=== PATIENT | male | born 1990 ===

== ENCOUNTER 2020-03-24 16:12 | Inpatient (IN) | payer MEDICAID, SELFPAY ==
[2020-03-24] VITALS (7 sets, daily range): BP systolic 112–127; BP diastolic 54–86; PULSE 52–82; RESP 16–20; TEMP 36.7–37.1; O2SAT 95–99; BMI 20.2
--- NOTE | ~2020-03-24 | XR_ITS ---
EXAMINATION: XR chest 1V portable INDICATION: Shortness of breath and right-sided chest pain TECHNIQUE: Portable AP chest at 1638 hours COMPARISON: None available FINDINGS: There is a large right pneumothorax. The trachea, mediastinum, and heart demonstrate slight leftward displacement. The left lung is clear. There is no pleural effusion. The visualized osseous structures are normal. IMPRESSION: 1. Right tension pneumothorax. These findings were discussed with CHRISTOPHER Pro in the Emergency Department at 1653 hours on 03/24/2020. ED is currently preparing for chest tube insertion. Reviewed, dictated and finalized at location A. IMPRESSION: 1. Right tension pneumothorax. These findings were discussed with CHRISTOPHER Pro in the Emergency Department at 1653 hours on 03/24/2020. ED is currently p reparing for chest tube insertion.
--- NOTE | ~2020-03-24 | XR_ITS ---
EXAMINATION: XR chest 1V portable DATE: 03/27/2020 14:11 INDICATION: Right pneumothorax. TECHNIQUE: A single frontal view of the chest was obtained. COMPARISON: Chest 2 views at 10:17 AM FINDINGS: There is mild atelectasis in right lower lung zone. There is a tiny right apical pneumothor ax. No pleural effusion. The heart size is normal. IMPRESSION: 1. Tiny right apical pneumothorax after chest tube removal. Reviewed, dictated and finalized at location A.
--- NOTE | ~2020-03-24 | XR_ITS ---
EXAMINATION: XR chest 1V portable INDICATION: Right pneumothorax TECHNIQUE: Portable AP chest at 0810 hours COMPARISON: 03/25/2020 FINDINGS: A right chest tube is in expected position. The right lung is reexpanded. A minute right ap ical pneumothorax is seen. There is resolving atelectasis of the right lung. The left lung is clear. The cardiomediastinal silhouette is normal. There is no pleural effusion. IMPRESSION: 1. Reexpansion of the right lung with minute right apical pneumothorax. Reviewed, dictated and finalized at location A.
--- NOTE | ~2020-03-24 | XR_ITS ---
EXAMINATION: XR chest-chest tube insert/pos INDICATION: Chest tube insertion TECHNIQUE: Portable AP chest at 1745 hours COMPARISON: 1638 hours FINDINGS: A right-sided chest tube has been inserted. There is a tiny persistent right apical pneumot horax. The right lung is largely reexpanded. There are patchy opacities of the right lung which likel y reflect atelectasis. The mediastinum has returned to normal position. The left lung is clear. IMPRESSION: 1. Near complete reexpansion of the right lung post chest tube insertion with tiny residual right api robbin pneumothorax. 2. Patchy opacities of the right lung, likely atelectasis. Reviewed, dictated and finalized at location A. IMPRESSION: 1. Near complete reexpansion of the right lung post chest tube insertion with t iny residual right apical pneumothorax. 2. Patchy opacities of the right lung, likely atelectasis.
--- NOTE | ~2020-03-24 | XR_ITS ---
EXAMINATION: XR chest 1V portable INDICATION: Right-sided pneumothorax TECHNIQUE: Portable AP chest at 0808 hours COMPARISON: 03/24/2020 FINDINGS: A right chest tube projects in expected position. There is a moderate-sized right pneumotho rax, increased in size since the chest tube placement radiograph from yesterday. Patchy opacities in the right lung likely reflect atelectasis. The left lung is clear. The cardiomediastinal silhouette i s normal and without leftward shift. Gas of the left chest wall is consistent with chest tube inserti on. IMPRESSION: 1. Moderate size right pneumothorax with increase in size. Reviewed, dictated and finalized at location A.
--- NOTE | ~2020-03-24 | XR_ITS ---
EXAMINATION: XR chest 1V portable EXAM DATE: 03/27/2020 17:03 INDICATION: Pneumothorax follow-up. TECHNIQUE: Frontal and lateral projections of the chest obtained and reviewed. Comparison is made to prior examination from 03/27/2020, earlier same day. FINDINGS: The lungs are clear. There are no pleural effusions. The cardiomediastinal silhouette is within normal limits. There is no pneumothorax suspected. The bones and soft tissues are unremarkab le. IMPRESSION: No evidence of recurrent right-sided pneumothorax. Reviewed, dictated and finalized at location A.
--- NOTE | ~2020-03-24 | XR_ITS ---
EXAMINATION: XR chest 2V DATE: 03/27/2020 10:23 INDICATION: Right pneumothorax. TECHNIQUE: Frontal and lateral views of the chest were obtained. COMPARISON: Chest single view 03/26/2020 FINDINGS: There is mild atelectasis in right lower lung zone. There is a tiny right apical pneumothor ax. No pleural effusion. The heart size is normal. There is a right-sided chest tube in expected posi tion. IMPRESSION: 1. Stable tiny right apical pneumothorax with right-sided chest tube in expected position. Reviewed, dictated and finalized at location A. IMPRESSION: 1. Stable tiny right apical pneumothorax with right-sided chest tube in expecte d position.
--- NOTE | 2020-03-24 16:14 | ECG_ITS ---
Measurements Intervals [place] Rate: 72 P: 101 ID: [id number] QRS: 99 QRSD: 118 T: 85 QT: 363 QTc: 399 Interpretive Statements SINUS RHYTHM INCOMPLETE RIGHT BUNDLE BRANCH BLOCK ARM LEADS REVERSED BASELINE ARTIFACT- I, III, AVR, AVL, AVF, V2-V3, V6 ABNORMAL ECG Electronically Signed On 03-25-2020 8:43:55 CDT by Addy Richmond D.O.
[2020-03-24 16:30] LABS: Basophils Percent Auto 0.3 % (0.2-1.2); Eosinophils Absolute Auto 0.1 K/mm3 (0-0.3); Eosinophils Percent Auto 1.1 % (0-4.4); Hematocrit 46.2 % (42.0-52.0); Hemoglobin 15.5 g/dL (14.0-18.0); Immature Granulocyte Absolute 0.01 K/mm3 (0.00-0.031); Immature Granulocyte Percent A 0.1 % (0-0.5); Lymphocytes Absolute Auto 2.76 K/mm3 (0.9-3.2); Lymphocytes Percent Auto 37.8 % (18.3-44.2); Mean Corpuscular HGB Conc 33.5 g/dl (32-36); Mean Corpuscular Hemoglobin 33.6 pg (26-34); Mean Corpuscular Volume 100.2 fl (80-100); Mean Platelet Volume 10.5 fl (7.4-10.4); Monocytes Absolute Auto 0.7 K/mm3 (0.1-0.6); Monocytes Percent Auto 8.9 % (2.6-8.5); Neutrophils Absolute Auto 3.8 K/mm3 (1.3-6.7); Neutrophils Percent Auto 51.8 % (45.5-73.1); Platelet Count Result 193 k/mm3 (150-375); Red Blood Count 4.61 M/mm3 (4.6-6.20); Red Cell Distribution Width 12.7 % (11.5-14.5); White Blood Count 7.3 K/mm3 (4.5-10.0)
--- NOTE | 2020-03-24 16:30 | ED.CHESTPAIN ---
HPI - Chest Pain General Chief Complaint: Chest Pain <Rm Moore PA-C - Last Filed: 03/24/20 18:08> Stated Complaint: Right side CP <ANGEL Saldaña Last Filed: 03/24/20 18:08> Time Seen by Provider: 03/24/20 16:14 <ANGEL Saldaña Last Filed: 03/24/20 18:08> Source: EMS <ANGEL Saldaña Last Filed: 03/24/20 18:08> Mode of arrival: ambulatory <ANGEL Saldaña Last Filed: 03/24/20 18:08> Limitations: no limitations <Rm Moore PA-C - Last Filed: 03/24/20 18:08> History of Present Illness HPI narrative: Patient is a 29-year-old male who presents to emergency department for evaluation of right-sided chest pain dyspnea that began acutely just prior to arrival patient was doing push-ups when he began to have the discomfort and pain called 911 and presents to emergency department <ANGEL Saldaña Last Filed: 03/24/20 18:08> Related Data Home Medications: Home Medications Medication Instructions Recorded Confirmed No Home Medications 03/24/20 03/24/20 <Rm Moore PA-C - Last Filed: 03/24/20 18:08> Allergies/Adverse Reactions: Allergies Allergy/AdvReac Type Severity Reaction Status Date / Time No Known Allergies Allergy Verified 03/24/20 16:30 <ANGEL Saldaña Last Filed: 03/24/20 18:08> Review of Systems Review of Systems: All systems reviewed & are unremarkable except as noted in HPI and below <Rm Moore PA-C - Last Filed: 03/24/20 18:08> PMFSH Past Medical History Medical History: Medical History No pertinent past medical history <ANGEL Saldaña Last Filed: 03/24/20 18:08> Social History Social History: Social History Smoking status: Never smoker <ANGEL Saldaña Last Filed: 03/24/20 18:08> Exam Narrative: Exam Narrative: GENERAL: Well-appearing, well-nourished, and in no acute distress. HEAD: Normocephalic, atraumatic. EYES: PERRLA and EOMI. ENT: Nares clear, no rhinorrhea or epistaxis. Mucous membranes moist. Oropharynx without tonsillar hypertrophy exudate or other lesions. Bilateral TMs pearly mendoza nonbulging NECK: Supple. No adenopathy or masses. No carotid bruits or JVD CHEST: Diminished breath sounds on the right clear to auscultation on the left. No respiratory distress. No wheezes rales or rhonchi HEART: Regular rate and rhythm. No murmur heard. Normal peripheral pulses. ABDOMEN: Soft, nontender, nondistended EXTREMITIES: Normal range of motion. No edema. SKIN: Warm, dry, no rash. NEURO: No focal deficits. Alert and oriented x3. PSYCH: Normal mood and affect. <Rm Moore PA-C - Last Filed: 03/24/20 18:08> Course Course Emergency Course: d/w hospitalist, dr hernandes, dr li <Jorge Hays MD - Last Filed: 03/24/20 19:23> Vital Signs Vital signs: Vital Signs Temperature 37.1 C 03/24/20 16:10 Respiratory Rate 03/24/20 16:10 Blood Pressure 116/78 03/24/20 16:10 Pulse Oximetry 95 03/24/20 16:10 Temperature 37.1 C 03/24/20 16:10 Pulse Rate 76 03/24/20 18:57 Respiratory Rate 18 03/24/20 18:57 Blood Pressure 127/86 03/24/20 18:57 Pulse Oximetry 99 03/24/20 18:57 <Rm Moore PA-C - Last Filed: 03/24/20 18:08> Vital Signs Temperature 37.1 C 03/24/20 16:10 Respiratory Rate 20 03/24/20 16:10 Blood Pressure 116/78 03/24/20 16:10 Pulse Oximetry 95 03/24/20 16:10 Temperature 37.1 C 03/24/20 16:10 Pulse Rate 76 03/24/20 18:57 Respiratory Rate 18 03/24/20 18:57 Blood Pressure 127/86 03/24/20 18:57 Pulse Oximetry 99 03/24/20 18:57 <Jorge Hays MD - Last Filed: 03/24/20 19:23> Procedures Chest Tube Chest Tube 1: Chest Tube Date: 03/24/20 <Jorge Hays MD - Last Filed: 03/24/20 19:23
[2020-03-24 16:42] LABS: Alanine Aminotransferase 16 U/L (4-50); Albumin Level 4.6 g/dL (3.5-5.1); Alkaline Phosphatase 69 U/L (38-126); Aspartate Amino Transferase 18 U/L (17-59); Bilirubin,Total 0.9 mg/dL (0.2-1.3); Blood Urea Nitrogen 15 mg/dL (9-20); Calcium 9.2 mg/dL (8.4-10.2); Carbon Dioxide 29 mmol/L (22-30); Chloride 102 mmol/L (98-107); Estimated CRCL calculation 93 ml/min; Estimated Glomerular Filt Rate > 60; Glucose 104 mg/dL (75-110); Potassium 3.9 mmol/L (3.4-5.0); Sodium 138 mmol/L (137-145)
[2020-03-24 16:43] LABS: Partial Thromboplastin Time 27.8 SECONDS (22.3-36.8)
[2020-03-24] MEDS: SODIUM CHLORIDE 0.9% IV 1,000 ML 100 ML (17:25)
[2020-03-24] MEDS: MORPHINE SULFATE 4 MG/ML INJ IV PUSH ×2 (17:49→20:14)
[2020-03-24] MEDS: LACTATED RINGERS 1,000 ML 125 ML IV CONT (20:13)
[2020-03-24] MEDS: FAMOTIDINE 20 MG/2 ML VIAL IV PUSH (20:15)
--- NOTE | 2020-03-24 20:22 | ADMGEN ---
This patient, Shivam Albright, was admitted to [facility] Surg Room 331-02. Patient/family oriented to hospital policies and general routines including ID bracelet, bed and alarms, visiting hours, pain management, procedures, bathroom and other care routines, personal items, smoking policy, room service/diet, and visiting hours. Valuables list has been completed. Information on how to activate the Rapid Response Team has been discussed. Patient/Family are encouraged to report perceived risks to care and to ask questions if they do not understand what they are told or what they should do.
--- NOTE | 2020-03-24 20:59 | PM.IMHP ---
H&P: HPI History of Present Illness Chief complaint: Right side CP Narrative: Shivam Albright is a 29 year old male who states that he does pushups about every other day. He said when he 1st woke up he did about 5 push up and started to have some severe pain on the right side. He has not had any fever or chills or been around anybody that has covid 19. No BS in the house is sick. He has not been sick at all. No fever no chills no cough. Patient was concerned because he had this right-sided chest pain and shortness of breath after doing pushups. The patient stated that he had a staph infection possibly MRSA under his armpit in the past but nothing like this. The patient smokes a joint of marijuana every single day. He stated that his brother had bilateral chest tubes when he was an infant and his dad and had chest tube in the past as well. On the x-ray it shows a right tension pneumothorax as read by radiologist. A chest tube was placed in the emergency room and the repeat chest x-ray was read as near complete re-expansion of the right lung post chest tube insertion with tiny residual right apical pneumothorax. Patchy opacities right lung likely atelectasis. Patient was swabbed for covid 19. Date of service 03/24/2020 Review of Systems Review of Systems: Narrative: No fever chills. You short of breath after he did sit ups. All systems reviewed & are unremarkable except as noted in HPI and below Constitutional: Constitutional: Reports as per HPI and Reports no additional constitutional complaints Eyes: Eyes: Reports as per HPI and Reports no additional eye complaints ENT: Reports system reviewed and no additional complaints, except as documented and Reports Normal hearing present Cardiovascular: Cardiovascular: Reports no additional cardiovascular complaints Respiratory: Respiratory: Reports no additional respiratory complaints and Reports no additional respiratory complaints Gastrointestinal: Gastrointestinal: Reports as per HPI and Reports no additional gastrointestinal complaints Musculoskeletal: Musculoskeletal: Reports no additional musculoskeletal complaints Integumentary/Breasts: Skin/Breast: Reports system reviewed and no additional complaints, except as docu and Reports as per HPI Neurologic: Reports system reviewed and no additional complaints, except as documented, Reports as per HPI and Reports Normal hearing present Psychiatric: Psychiatric: Reports no additional psychiatric complaints and Reports as per HPI Endocrine: Endocrine: Reports no additional endocrine complaints Hematologic/Lymphatic: Hematologic/Lymphatic: Reports no additional hematologic/lymphatic complaints Allergic/Immunologic: Allergic/Immunologic: Reports no additional allergic/immunologic complaints PMFSH Past Medical History Medical History (Updated 03/24/20 @ 21:06 by Elisha Jerome NP) Axillary abscess H/O drainage of abscess Axillary area Marijuana use, continuous No pertinent past medical history Family History Family History Father Collapsed lung Sibling Collapsed lung Social History Social History (Updated 03/24/20 @ 21:07 by Elisha Jerome NP) Social History: Patient does not have a durable power collections attorney but would like to be a full code. He has no children he is single. Patient was working at the [employer] until the [id number] order in [place]. He is currently living with his parents Smoking packs per day: 0.5 Smoking cigarettes per day: 10.0 Years smoked: 11 Smoking pack-years: 5.50 Smoking status: Current every day smoker Tobacco type: cigarettes Alcohol intake: never Substance use: current Substance use type: marijuana Living arrangements: with family Gender identity (if verbalized by the patient): Male Spiritual care concerns: No Agree to blood products: Yes Meds Home Medications and Allergies Home Medi
[2020-03-25] VITALS (7 sets, daily range): BP systolic 99–145; BP diastolic 55–69; PULSE 50–75; RESP 16–18; TEMP 36.3–36.9; O2SAT 92–100
[2020-03-25] MEDS: KETOROLAC 15 MG/ML VIAL (*BKC) IV PUSH ×2 (00:53→06:16)
[2020-03-25] MEDS: LACTATED RINGERS 1,000 ML 125 ML IV CONT (06:15)
[2020-03-25 06:48] LABS: Basophils Percent Auto 0.2 % (0.2-1.2); Eosinophils Absolute Auto 0.1 K/mm3 (0-0.3); Eosinophils Percent Auto 0.8 % (0-4.4); Hematocrit 41.9 % (42.0-52.0); Immature Granulocyte Absolute 0.02 K/mm3 (0.00-0.031); Immature Granulocyte Percent A 0.2 % (0-0.5); Lymphocytes Absolute Auto 2.81 K/mm3 (0.9-3.2); Lymphocytes Percent Auto 31.1 % (18.3-44.2); Mean Corpuscular HGB Conc 33.4 g/dl (32-36); Mean Corpuscular Hemoglobin 33.4 pg (26-34); Mean Platelet Volume 10.5 fl (7.4-10.4); Monocytes Absolute Auto 0.9 K/mm3 (0.1-0.6); Neutrophils Absolute Auto 5.2 K/mm3 (1.3-6.7); Neutrophils Percent Auto 57.7 % (45.5-73.1); Platelet Count Result 168 k/mm3 (150-375); Red Blood Count 4.19 M/mm3 (4.6-6.20); Red Cell Distribution Width 12.7 % (11.5-14.5)
[2020-03-25 07:55] LABS: Alanine Aminotransferase 13 U/L (4-50); Albumin Level 3.8 g/dL (3.5-5.1); Alkaline Phosphatase 59 U/L (38-126); Aspartate Amino Transferase 17 U/L (17-59); Bilirubin,Total 0.8 mg/dL (0.2-1.3); Blood Urea Nitrogen 11 mg/dL (9-20); CRP 0.8 mg/dL (<1.0); Calcium 8.7 mg/dL (8.4-10.2); Carbon Dioxide 29 mmol/L (22-30); Chloride 104 mmol/L (98-107); Estimated CRCL calculation 114 ml/min; Estimated Glomerular Filt Rate > 60; Glucose 89 mg/dL (75-110); Lactate Dehydrogenase 270 U/L (313-618); Potassium 3.9 mmol/L (3.4-5.0); Sodium 137 mmol/L (137-145)
[2020-03-25] MEDS: FAMOTIDINE 20 MG/2 ML VIAL IV PUSH (09:09)
--- NOTE | 2020-03-25 11:18 | PM.CNGS ---
Assessment and Plan Assessment and plan (1) Tension pneumothorax: Code(s): J93.0 - Spontaneous tension pneumothorax Status: Acute Assessment and Plan: I have reviewed the imaging and discussed findings with the patient. Spontaneous pneumothorax likely related to body habitus and tobacco use. Chest tube appears in proper position but was not on suction. Will place chest tube to -20 cm water suction. Also applied nasal cannula oxygen and encourage incentive spirometry. I discussed the importance of quitting smoking of all types including marijuana to prevent recurrences of pneumothorax. Anticipate chest tube being in place for at least a couple days until pneumothorax is completely resolved. Will continue pain control in the meantime. I also discussed possibility of requiring replacement of chest tube or placement of a 2nd chest tube if air leak persists. (2) Tobacco abuse: Code(s): Z72.0 - Tobacco use Status: Acute Assessment and Plan: Patient given material on quitting smoking and discussed the importance of quitting smoking at length with him. History of Present Illness Consult details Consult date: 03/25/20 Narrative: This is a 29-year-old man who I am asked to see in consultation for management of pneumothorax. He presented to the emergency department with acute onset of chest pain yesterday. He was doing some pushups when all of a sudden he began feeling right posterior chest pain and shortness of breath. Pain was worsening and he could not catch his breath, therefore he presented to the ED. Chest x-ray showed evidence of a right tension pneumothorax. A chest tube was placed emergently by the ED physician, and post chest tube x-ray showed near complete re-expansion of the right long. He has now been admitted to the hospitalist. COVID testing was performed and results are not back yet. I spoke with the ED physician yesterday and recommended placing chest tube dissection, however this was not done. He has been placed to water seal since being admitted. Chest x-ray this morning shows persistent right pneumothorax but no evidence of tension pneumothorax. Chest tube still appears in proper position on the x-ray. Patient's symptoms are significantly improved, but he still does have some pain and shortness of breath. He has never had anything like this happen to him before. He did state that his father and brother have both had collapsed lungs in the past. He is a smoker and also smokes marijuana. Review of Systems Review of Systems: All systems reviewed & are unremarkable except as noted in HPI and below Eyes: Eyes: Denies change in vision ENT: Denies hearing loss, Denies neck pain and Denies sore throat Cardiovascular: Cardiovascular: Denies chest pain and Denies dyspnea Respiratory: Respiratory: Reports as per HPI, Denies cough, Reports dyspnea and Denies wheezing Genitourinary: Genitourinary: Denies hematuria and Denies dysuria Musculoskeletal: Musculoskeletal: Denies arthralgias, Denies joint swelling and Denies neck pain Allergic/Immunologic: Allergic/Immunologic: Denies wheezing PMFSH Past Medical History Medical History Axillary abscess H/O drainage of abscess Axillary area Marijuana use, continuous No pertinent past medical history Family History Family History Father Collapsed lung Sibling Collapsed lung Social History Social History Social History: 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 He has no children he is single. Patient was working at the [employer] until the [id number] order in [place]. He is currently living with his parents Smoking packs per day: 0.5 Smoking cigarettes per day: 10.0 Years smoked: 11 Smoking pack-years: 5.
[2020-03-25 13:34] LABS: SARS-CoV-2 RNA PCR Negative
--- NOTE | 2020-03-25 15:20 | PM.IMPN ---
Progress Note: A&P Assessment and Plan (1) Tension pneumothorax: Code(s): J93.0 - Spontaneous tension pneumothorax Status: Acute Assessment and Plan: Repeat CXR today shows moderate sized right pneumothorax with increased size. Thoracostomy tube was not hooked to suction from the ER overnight; General Surgery following and has now placed patient's thoracostomy tube to suction. The patient smokes marijuana and tobacco on a daily basis. General Surgery following and appreciate recommendations Continue 2L O2 NC despite saturations Will add symbicort and albuterol inhaler Continue with pain control Monitor (2) Suspected COVID-19 virus infection: Code(s): R68.89 - Other general symptoms and signs Status: Ruled-out Assessment and Plan: COVID testing negative (3) Marijuana use, continuous: Code(s): F12.90 - Cannabis use, unspecified, uncomplicated Status: Chronic Assessment and Plan: Discussed at least 4 minutes about marijuana and tobacco smoking cessation. Patient denies any need for nicotine patch at this time (4) Tobacco abuse: Code(s): Z72.0 - Tobacco use Status: Acute Assessment and Plan: Please see above a/p Subjective Date/time seen: 03/25/20 15:20 Interval history: Patient is a 29 yo M with history of marijuana and tobacco use who is here for treatment of pneumothorax. Patient is feeling slightly better today with his pain regimen. No shortness of breath at this moment. Denies any drainage from tube site. Occasionally has some palpitations with deep inspirations. He has no other complaints at the moment. Denies f/c/s, myalgias/arthralgias, headaches, sob/cough, n/v/d/c, abd pain, changes in BMs, dysuria, hematuria, cloudy urine, calf pain/swelling. Review of Systems Review of Systems: All systems reviewed & are unremarkable except as noted in HPI and below Exam Narrative: Exam Narrative: Patient is lying in semi-marroquin's position at time of visit; thoracostomy tube to suction Const: General: cooperative, comfortable, no acute distress, well developed and alert Nutritional Appearance: well nourished Orientation/consciousness: patient oriented x3 HENMT: Head: normocephalic and atraumatic General nose exam: Normal nares present Face and sinus: face symmetric Mouth: Yes moist mucous membranes Eyes: General: appearance normal, both eyes and all related structures EOM: EOMs intact bilaterally Neck: Neck: trachea midline and supple Chest: Chest palpation & inspection: abnormal inspection of the chest (Thoracostomy tube noted right lateral chest; no drainaged on gauze) Resp: Effort & Inspection: normal respiratory effort Auscultation: clear to auscultation bilaterally (Lung sounds noted in all anterolateral lung pineda) Cardio: Rate: regular rate Rhythm: regular rhythm Heart sounds: no murmurs GI: Inspection: non-distended GI Palp: No abdominal tenderness and Yes Soft to palpation Auscultation: normal bowel sounds and normoactive bowel sounds Skin: General skin exam: normal color and no rashes or lesions noted Neuro: General: patient oriented x3, moves all extremities and no focal motor deficits Speech: normal speech Extrem: Right lower extremity: no edema Left lower extremity: no edema Other: NTTP b/l claves Psych: Mental Status: mental status grossly normal Affect: normal affect Objective Data Vital Signs Vital Signs: Last Vital Signs Temp 98.5 F 03/25/20 14:00 Pulse 75 03/25/20 14:00 Resp 18 03/25/20 14:00 BP 129/65 03/25/20 14:00 Pulse Ox 97 03/25/20 14:00 Intake/Output Intake/Output: Intake & Output 03/22/20 03/23/20 03/24/20 03/25/20 23:59 23:59 23:59 23:59 Intake Total 1100 1490 Output Total 1400 Balance 1100 90 Meds/
[2020-03-25] MEDS: ALBUTEROL SULFATE (*SP) AEROSOL 1 PUFF 2 PUFF INHALATION ×2 (16:34→19:06)
[2020-03-26] VITALS (8 sets, daily range): BP systolic 125–138; BP diastolic 61–77; PULSE 50–65; RESP 16–20; TEMP 36.4–36.9; O2SAT 97–100
[2020-03-26 06:34] LABS: Basophils Percent Auto 0.2 % (0.2-1.2); Eosinophils Absolute Auto 0.1 K/mm3 (0-0.3); Eosinophils Percent Auto 0.8 % (0-4.4); Hematocrit 43.3 % (42.0-52.0); Hemoglobin 14.5 g/dL (14.0-18.0); Immature Granulocyte Absolute 0.03 K/mm3 (0.00-0.031); Immature Granulocyte Percent A 0.3 % (0-0.5); Lymphocytes Percent Auto 28.5 % (18.3-44.2); Mean Corpuscular HGB Conc 33.5 g/dl (32-36); Mean Corpuscular Hemoglobin 33.5 pg (26-34); Mean Platelet Volume 10.7 fl (7.4-10.4); Monocytes Absolute Auto 0.9 K/mm3 (0.1-0.6); Monocytes Percent Auto 8.7 % (2.6-8.5); Neutrophils Percent Auto 61.5 % (45.5-73.1); Platelet Count Result 165 k/mm3 (150-375); Red Blood Count 4.33 M/mm3 (4.6-6.20); Red Cell Distribution Width 12.5 % (11.5-14.5); White Blood Count 9.8 K/mm3 (4.5-10.0)
[2020-03-26] MEDS: ALBUTEROL SULFATE (*SP) AEROSOL 1 PUFF 2 PUFF INHALATION ×4 (08:27→20:57)
--- NOTE | 2020-03-26 11:49 | PM.PNGS ---
Progress Note: A&P Assessment and Plan (1) Tension pneumothorax: Code(s): J93.0 - Spontaneous tension pneumothorax Status: Acute Assessment and Plan: Chest x-ray improved this morning. He does still have an air leak. Discussed continuing chest tube on -20 cm of suction. If air leak persists, he may eventually require transfer to a facility that has thoracic surgeons. (2) Tobacco abuse: Code(s): Z72.0 - Tobacco use Status: Acute Subjective Subjective Date/Time Seen: 03/26/20 11:49 Pain well controlled. No shortness of breath. Denies cough or fever. Exam Resp: Effort & Inspection: normal respiratory effort Auscultation: clear to auscultation bilaterally Other: Right chest tube in place. Moderate air leak noted. Dressing around chest tube was replaced, and air leak persists. Objective Data Vital Signs Vital Signs: Vital Signs - 24 hr 03/25/20 14:00 03/25/20 18:00 03/25/20 19:11 Temperature 36.9 C 36.7 C Pulse Rate 75 50 L Respiratory Rate 18 18 Blood Pressure 129/65 145/69 H Pulse Oximetry 97 100 96 03/25/20 22:00 03/26/20 01:49 03/26/20 05:00 Temperature 36.8 C 36.8 C 36.9 C Pulse Rate 70 50 L 50 L Respiratory Rate 16 16 18 Blood Pressure 128/64 125/61 126/74 Pulse Oximetry 100 100 100 03/26/20 08:28 03/26/20 10:00 Temperature 36.6 C Pulse Rate 58 L Respiratory Rate 20 Blood Pressure 126/65 Pulse Oximetry 98 99 Intake/Output Intake/Output: Intake & Output 03/23/20 03/24/20 03/25/20 03/26/20 23:59 23:59 23:59 23:59 Intake Total 1100 2340 770 Output Total 1400 1550 Balance 1100 940 -780 Meds/Results Medications: Active Medications Generic Name Dose Route Start Last Admin Trade Name Freq PRN Reason Stop Dose Admin Acetaminophen 650 mg 03/25/20 09:45 Tylenol Tablet PO Q6H PRN Mild Pain (1-3) or Fever Hydrocodone Bitart/Acetaminophen 1 tab 03/25/20 11:14 03/26/20 05:40 Zirconia 7.5-325 Mg PO 1 tab Q4H PRN Administration Pain Rated 7-10 Albuterol 2 puff 03/25/20 16:00 03/26/20 08:27 Proventil Hfa INHALATION 2 puff QIDRT JUNIOR Administration Budesonide/Formoterol Fumarate 2 puff 03/25/20 20:00 03/26/20 08:27 Symbicort 80-4.5 Mcg (*Sp) Inhaler INHALATION 2 puff Q12HRT JUNIOR Administration Ibuprofen 800 mg 03/25/20 11:14 Motrin PO Q8H PRN Pain Rated 4-6 Ondansetron HCl 4 mg 03/24/20 18:09 Zofran Inj IV PUSH Q4H PRN Nausea Radiology Results: ITS Impressions Chest X-Ray 03/26/20 08:18 IMPRESSION: 1. Reexpansion of the right lung with minute right apical pneumothorax. Labs Labs: Laboratory Results - last 24 hr 03/24/20 03/26/20 18:18 06:06 WBC 9.8 RBC 4.33 L Hgb 14.5 Hct 43.3 MCV 100.0 MCH 33.5 MCHC 33.5 RDW 12.5 Plt Count 165 MPV 10.7 H Immature Gran % (Auto) 0.3 Neut % (Auto) 61.5 Lymph % (Auto) 28.5 Fleming % (Auto) 8.7 H Eos % (Auto) 0.8 Baso % (Auto) 0.2 Lymph # (Auto) 2.80 Fleming # (Auto) 0.9 H Eos # (Auto) 0.1 Baso # (Auto) 0.0 Abs Immat Gran (auto) 0.03 Absolute Neuts (auto) 6.0 Absolute Nucleated RBC 0.0 Nucleated RBC % 0.0 SARS-CoV-2 RNA (RT-PCR) Negative Quality VTE Prophylaxis VTE prophylaxis: mechanical ordered
--- NOTE | 2020-03-26 12:03 | PM.IMPN ---
Progress Note: A&P Assessment and Plan (1) Tension pneumothorax: Code(s): J93.0 - Spontaneous tension pneumothorax Status: Acute Assessment and Plan: Repeat CXR today shows near complete reexpansion of right lung with minute right apical pneumothorax. The patient smokes marijuana and tobacco on a daily basis. General Surgery following and appreciate recommendations Patient to have CXR 2v tomorrow; if air leak persists, will be considering transfer to tertiary care center with CT surgery Continue 2L O2 NC despite saturations Continue symbicort and albuterol inhaler Continue with pain control Monitor (2) Marijuana use, continuous: Code(s): F12.90 - Cannabis use, unspecified, uncomplicated Status: Chronic Assessment and Plan: Marijuan smoking cessation will be recommended at discharge. (3) Tobacco abuse: Code(s): Z72.0 - Tobacco use Status: Acute Assessment and Plan: Patient denies any need for nicotine patch at this time Subjective Date/time seen: 03/26/20 12:03 Interval history: Patient is a 29 yo M with history of marijuana and tobacco use who is here for treatment of pneumothorax. Patient is feeling well today with his pain regimen. Denies SOB, cough, or drainage/air leakage from tube site. He has no complaints at the moment. Denies f/c/s, myalgias/arthralgias, headaches, sob/cough, n/v/d/c, abd pain, changes in BMs, dysuria, calf pain/swelling. Review of Systems Review of Systems: All systems reviewed & are unremarkable except as noted in HPI and below Exam Narrative: Exam Narrative: Patient is lying in semi-marroquin's position at time of visit; thoracostomy tube to suction Const: General: cooperative, comfortable, no acute distress, well developed and alert Nutritional Appearance: well nourished Orientation/consciousness: patient oriented x3 HENMT: Head: normocephalic and atraumatic General nose exam: Normal nares present (NC noted) Face and sinus: face symmetric Mouth: Yes moist mucous membranes Eyes: General: appearance normal, both eyes and all related structures EOM: EOMs intact bilaterally Neck: Neck: trachea midline and supple Chest: Chest palpation & inspection: abnormal inspection of the chest (Thoracostomy tube noted right lateral chest; suction; no drainaged on gauze) Resp: Effort & Inspection: normal respiratory effort Auscultation: clear to auscultation bilaterally (Lung sounds noted in all anterolateral lung pineda) Cardio: Rate: regular rate Rhythm: regular rhythm Heart sounds: no murmurs GI: Inspection: non-distended GI Palp: No abdominal tenderness and Yes Soft to palpation Auscultation: normal bowel sounds and normoactive bowel sounds Skin: General skin exam: normal color and no rashes or lesions noted Neuro: General: patient oriented x3, moves all extremities and no focal motor deficits Speech: normal speech Extrem: Right lower extremity: no edema Left lower extremity: no edema Other: NTTP b/l claves Psych: Mental Status: mental status grossly normal Affect: normal affect Objective Data Vital Signs Vital Signs: Last Vital Signs Temp 97.8 F 03/26/20 10:00 Pulse 58 L 03/26/20 10:00 Resp 20 03/26/20 10:00 BP 126/65 03/26/20 10:00 Pulse Ox 99 03/26/20 10:00 Intake/Output Intake/Output: Intake & Output 03/23/20 03/24/20 03/25/20 03/26/20 23:59 23:59 23:59 23:59 Intake Total 1100 2340 770 Output Total 1400 1550 Balance 1100 940 -780 Meds/Results Medications: Active Medications Generic Name Dose Route Start Last Admin Trade Name Freq PRN Reason Stop Dose Admin Acetaminophen 650 mg 03/25/20 09:45 Tylenol Tablet PO Q6H PRN Mild Pain (1-3) or Fever Hydrocodone Bitart/Acetaminophen 1 tab 03/25/20 11:14 03/26/20 05:40 [place] 7.5-325 Mg PO 1 tab
[2020-03-27 02:00] VITALS: BP 126/68; PULSE 52; RESP 18; TEMP 36.4; O2SAT 100
[2020-03-27 06:09] LABS: Hematocrit 46.1 % (42.0-52.0); Hemoglobin 15.4 g/dL (14.0-18.0); Mean Corpuscular HGB Conc 33.4 g/dl (32-36); Mean Corpuscular Hemoglobin 33.7 pg (26-34); Mean Corpuscular Volume 100.9 fl (80-100); Platelet Count Result 171 k/mm3 (150-375); Red Blood Count 4.57 M/mm3 (4.6-6.20); Red Cell Distribution Width 12.4 % (11.5-14.5); White Blood Count 7.3 K/mm3 (4.5-10.0)
[2020-03-27 06:13] VITALS: BP 130/76; PULSE 53; RESP 18; TEMP 36.4; O2SAT 100
[2020-03-27] MEDS: ALBUTEROL SULFATE (*SP) AEROSOL 1 PUFF 2 PUFF INHALATION ×3 (08:50→17:30)
[2020-03-27 08:52] VITALS: O2SAT 98
--- NOTE | 2020-03-27 09:26 | PM.IMPN ---
Progress Note: A&P Assessment and Plan (1) Tension pneumothorax: Code(s): J93.0 - Spontaneous tension pneumothorax Status: Acute Assessment and Plan: Repeat CXR yesterday shows near complete reexpansion of right lung with minute right apical pneumothorax; today's CXR yet to be performed. The patient smokes marijuana and tobacco on a daily basis. General Surgery following and appreciate recommendations Patient to have CXR 2v today; if air leak persists, will be considering transfer to tertiary care center with CT surgery Continue 2L O2 NC despite saturations Continue symbicort and albuterol inhaler Continue with pain control Monitor (2) Marijuana use, continuous: Code(s): F12.90 - Cannabis use, unspecified, uncomplicated Status: Chronic Assessment and Plan: Marijuana smoking cessation encouraged again today (3) Tobacco abuse: Code(s): Z72.0 - Tobacco use Status: Acute Assessment and Plan: Smoking cessation encouraged again today Patient denies any need for nicotine patch at this time Subjective Date/time seen: 03/27/20 09:26 Interval history: Patient is a 29 yo M with history of marijuana and tobacco use who is here for treatment of pneumothorax. Patient is feeling well today again today. His pain is mostly in his back rather than his chest; he thinks this is due to laying in bed. He does note some occasional wheezing like a balloon losing air surrounding the thoracostomy site. Denies SOB, cough, or drainage from tube site. He has no complaints at the moment. Denies f/c/s, myalgias/arthralgias, headaches, sob/cough, n/v/d/c, abd pain, changes in BMs, dysuria, calf pain/swelling. Review of Systems Review of Systems: All systems reviewed & are unremarkable except as noted in HPI and below Exam Narrative: Exam Narrative: Patient is lying in semi-marroquin's position at time of visit; thoracostomy tube to suction Const: General: cooperative, comfortable, no acute distress, well developed and alert Nutritional Appearance: well nourished Orientation/consciousness: patient oriented x3 HENMT: Head: normocephalic and atraumatic General nose exam: Normal nares present (NC noted) Face and sinus: face symmetric Mouth: Yes moist mucous membranes Eyes: General: appearance normal, both eyes and all related structures EOM: EOMs intact bilaterally Neck: Neck: trachea midline and supple Chest: Chest palpation & inspection: abnormal inspection of the chest (Thoracostomy tube noted right lateral chest; suction; no drainaged on gauze) Resp: Effort & Inspection: normal respiratory effort Auscultation: clear to auscultation bilaterally and diminished lung sounds on the right in the lower lung pineda Cardio: Rate: regular rate Rhythm: regular rhythm Heart sounds: no murmurs GI: Inspection: non-distended GI Palp: No abdominal tenderness and Yes Soft to palpation Auscultation: normal bowel sounds and normoactive bowel sounds Skin: General skin exam: normal color and no rashes or lesions noted Neuro: General: patient oriented x3, moves all extremities and no focal motor deficits Speech: normal speech Extrem: Right lower extremity: no edema Left lower extremity: no edema Other: NTTP b/l claves Psych: Mental Status: mental status grossly normal Affect: normal affect Objective Data Vital Signs Vital Signs: Last Vital Signs Temp 97.6 F 03/27/20 06:13 Pulse 53 L 03/27/20 06:13 Resp 18 03/27/20 06:13 BP 130/76 03/27/20 06:13 Pulse Ox 98 03/27/20 08:52 Intake/Output Intake/Output: Intake & Output 03/24/20 03/25/20 03/26/20 03/27/20 23:59 23:59 23:59 23:59 Intake Total 1100 2340 2010 250 Output Total 1400 3150 1500 Balance 1100 950 1145 -1250 Meds/Results Medications: Active Medications Generic Name Dose Route Start La
[2020-03-27 10:00] VITALS: BP 127/62; PULSE 65; RESP 18; TEMP 36.8; O2SAT 100
--- NOTE | 2020-03-27 11:14 | PM.PNGS ---
Progress Note: A&P Assessment and Plan (1) Tension pneumothorax: Code(s): J93.0 - Spontaneous tension pneumothorax Status: Acute Assessment and Plan: Chest x-ray on water seal this morning shows a stable tiny right pneumothorax. No air leak on exam today. We will put the chest tube to water seal and repeat a chest x-ray later today. May be able to remove the chest tube if the patient remains stable. Continued to encourage IS use. (2) Tobacco abuse: Code(s): Z72.0 - Tobacco use Status: Acute Additional Plan Discussed the patient's case and plan of care with Dr. Cleveland. Subjective Subjective Date/Time Seen: 03/27/20 11:14 Patient reports: no new complaints Interval history: Patient reports feeling well today. Pain near chest tube is well-controlled. No acute events overnight. Review of Systems Review of Systems: All systems reviewed & are unremarkable except as noted in HPI and below Exam Const: General: comfortable and no acute distress Orientation/consciousness: patient oriented x3 Resp: Effort & Inspection: normal respiratory effort and able to speak in complete sentences Auscultation: clear to auscultation bilaterally Other: Right chest tube in place with dressing c/d/i. No air leak noted on exam. Cardio: Rate: regular rate Rhythm: regular rhythm Skin: General skin exam: normal color Neuro: General: moves all extremities and no focal motor deficits Extrem: General: normal to inspection Objective Data Vital Signs Vital Signs: Vital Signs - 24 hr 03/26/20 14:00 03/26/20 18:40 03/26/20 20:00 Temperature 36.7 C 36.4 C L 36.7 C Pulse Rate 65 56 L 62 Respiratory Rate 16 18 18 Blood Pressure 134/64 127/76 138/77 Pulse Oximetry 100 99 100 03/26/20 21:07 03/27/20 02:00 03/27/20 06:13 Temperature 36.4 C L 36.4 C Pulse Rate 52 L 53 L Respiratory Rate 18 18 Blood Pressure 126/68 130/76 Pulse Oximetry 97 100 100 03/27/20 08:52 03/27/20 10:00 Temperature 36.8 C Pulse Rate 65 Respiratory Rate 18 Blood Pressure 127/62 Pulse Oximetry 98 100 Intake/Output Intake/Output: Intake & Output 03/24/20 03/25/20 03/26/20 03/27/20 23:59 23:59 23:59 23:59 Intake Total 1100 2340 2009 370 Output Total 1400 3150 1500 Balance 1100 926 -6946 -1067 Meds/Results Medications: Active Medications Generic Name Dose Route Start Last Admin Trade Name Freq PRN Reason Stop Dose Admin Acetaminophen 650 mg 03/25/20 09:45 Tylenol Tablet PO Q6H PRN Mild Pain (1-3) or Fever Hydrocodone Bitart/Acetaminophen 1 tab 03/25/20 11:14 03/27/20 08:24 [place] 7.5-325 Mg PO 1 tab Q4H PRN Administration Pain Rated 7-10 Albuterol 2 puff 03/25/20 16:00 03/26/20 20:57 Proventil Hfa INHALATION 2 puff QIDRT JUNIOR Administration Budesonide/Formoterol Fumarate 2 puff 03/25/20 20:00 03/26/20 20:57 Symbicort 80-4.5 Mcg (*Sp) Inhaler INHALATION 2 puff Q12HRT JUNIOR Administration Docusate Sodium 100 mg 03/27/20 09:31 Colace Capsule PO Q12H PRN Constipation Ibuprofen 800 mg 03/25/20 11:14 Motrin PO Q8H PRN Pain Rated 4-6 Ondansetron HCl 4 mg 03/24/20 18:09 Zofran Inj IV PUSH Q4H PRN Nausea Radiology Results: ITS Impressions Chest X-Ray 03/27/20 10:25 IMPRESSION: 1. Stable tiny right apical pneumothorax with right-sided chest tube in expected position. Labs Labs: Laboratory Results - last 24 hr 03/27/20 05:27 WBC 7.3 RBC 4.57 L Hgb 15.4 Hct 46.1 MCV 100.9 H MCH 33.7 MCHC 33.4 RDW 12.4 Plt Count 171 MPV 11.0 H Quality VTE Prophylaxis VTE prophylaxis: mechanical ordered
[2020-03-27 14:00] VITALS: BP 111/56; PULSE 69; RESP 18; TEMP 36.8; O2SAT 99
--- NOTE | 2020-03-27 17:29 | PM.DS ---
DS: Diagnosis Admitting Diagnosis Admitting Diagnosis: Spontaneous tension pneumothorax Discharge Diagnosis (1) Tension pneumothorax: Code(s): J93.0 - Spontaneous tension pneumothorax Status: Acute Assessment and Plan: Repeat CXR this afternoon after chest tube was pulled showed no evidence of recurrent right sided pneumothorax. General Surgery has cleared patient for discharge from their standpoint Discharge home today 2L O2 NC during stay Symbicort and albuterol inhaler during stay f/u with General Surgery and PCP (2) Marijuana use, continuous: Code(s): F12.90 - Cannabis use, unspecified, uncomplicated Status: Chronic Assessment and Plan: Marijuana smoking cessation encouraged again today (3) Tobacco abuse: Code(s): Z72.0 - Tobacco use Status: Acute Assessment and Plan: Smoking cessation encouraged again today Patient denies any need for nicotine patch at this time DS: Summary Time Spent with Patient Time attestation: Total time spent providing and/or coordinating discharge services: Exam Narrative: Exam Narrative: Patient is lying in semi-marroquin's position at time of visit; thoracostomy tube to suction Const: General: cooperative, comfortable, no acute distress, well developed and alert Nutritional Appearance: well nourished Orientation/consciousness: patient oriented x3 HENMT: Head: normocephalic and atraumatic General nose exam: Normal nares present (NC noted) Face and sinus: face symmetric Mouth: Yes moist mucous membranes Eyes: General: appearance normal, both eyes and all related structures EOM: EOMs intact bilaterally Neck: Neck: trachea midline and supple Chest: Chest palpation & inspection: abnormal inspection of the chest (Thoracostomy tube noted right lateral chest; suction; no drainaged on gauze) Resp: Effort & Inspection: normal respiratory effort Auscultation: clear to auscultation bilaterally and diminished lung sounds on the right in the lower lung pineda Cardio: Rate: regular rate Rhythm: regular rhythm Heart sounds: no murmurs GI: Inspection: non-distended Auscultation: normal bowel sounds and normoactive bowel sounds Skin: General skin exam: normal color and no rashes or lesions noted Neuro: General: patient oriented x3, moves all extremities and no focal motor deficits Speech: normal speech Extrem: Right lower extremity: no edema Left lower extremity: no edema Other: NTTP b/l claves Psych: Mental Status: mental status grossly normal Affect: normal affect DS: Data Data Completed and Pending Labs on day of discharge: Labs from last 24 hours 03/27/20 05:27 WBC 7.3 RBC 4.57 L Hgb 15.4 Hct 46.1 MCV 100.9 H MCH 33.7 MCHC 33.4 RDW 12.4 Plt Count 171 MPV 11.0 H Discharge Plan Discharge Attending physician on discharge: Anuja Swift Consulting providers: Ronen Cleveland Discharging Clinician: Shorty Gonzalez Anticipated Discharge Date/Time: 03/27/20 17:32 Patient Disposition: Home, Self-Care Activity: as tolerated Diet: regular Wound Care Instructions: other - see discharge instructions Discharge Instructions: Remove bandage in 48 hours. Re-apply bandage as needed for any wound opening. Discharge instructions per Hospitalist Shorty Gonzalez PA-C: Once established with PCP, follow up in 1-2 weeks about recent hospital stay Follow up with General Surgery as needed or per their instructions Smoking cessation (marijuana, tobaccor, or vapes) strongly encouraged. Discuss with your PCP about resources if you need help quitting Recommend OTC Tylenol or Ibuprofen for pain Should you experience severe chest pain, shortness of breath, or any other worrisome symptoms, please safely proceed to the nearest ER for further marek
== END 2020-03-27 18:15 | disposition home or self-care (01) | DRG 143 ==
LOC: ANHED 18:14 → ANH3MEDSUR 18:50
PROVIDERS: Emergency Medicine Emergency Medical Services; Nurse Practitioner; Physician Assistant; Admitting Provider Hospitalist; Emergency Provider Emergency Medicine; Visit Provider Family Medicine
DX: J93.0 Spontaneous tension pneumothorax (principal); Z20.828 Contact with and (suspected) exposure to other viral communicable diseases; F17.210 Nicotine dependence, cigarettes, uncomplicated; F12.90 Cannabis use, unspecified, uncomplicated
CPT/HCPCS: 32551; 36415; 71045; 71046; 80053; 83615; 83735; 84443; 85025; 85027; 85610; 85730; 86140; 87635; 93005; 94640; 96361; 96374; 96375; 99291; A9270; C1729; J0131; J1885; J2270; J3010; J7030; J7120; U0003